=== PATIENT | female | born 1970 | race Caucasian/White ===

== ENCOUNTER → 2018-08-25 | Day surgery (SDC) | payer OTHER ==
--- NOTE | 2018-08-27 11:28 | PATH ---
Surgical Pathology Report Patient Name: KENTRELL HERNANDEZ [facility]. Rec. #: [id number] /Age/Gender: 1970 (Age: 48) / F Account: [id number] Location: [facility] Taken: 08/25/2018 Received: 08/25/2018 Reported: 08/27/2018 Physicians: Melissa Yepez M.D. Specimen(s) Received A: LEFT BREAST SPECIMEN WITH CALCIFICATIONS B: LEFT BREAST SPECIMEN WITHOUT CALCIFICATIONS Clinical History Nonpalpable lesion Mammographic findings: Microcalcification, suspicious Final Diagnosis A. BREAST, LEFT, WITH CALCIFICATIONS, STEREOTACTIC BIOPSY: BENIGN BREAST TISSUE SHOWING COLUMNAR CELL CHANGE / HYPERPLASIA WITH ASSOCIATED CALCIFICATIONS. B. BREAST, LEFT, WITHOUT CALCIFICATIONS, STEREOTACTIC BIOPSY: BENIGN BREAST TISSUE SHOWING COLUMNAR CELL CHANGE / HYPERPLASIA WITH ASSOCIATED CALCIFICATIONS. Electronically Signed Luz Tejada M.D. Gross Description A. Received in formalin labeled "left breast with calcifications," are 5 davies-yellow, cylindrical portions of fibroadipose tissue ranging from 0.4-2.2 cm in length and averaging 0.3 cm in diameter. The specimens are submitted in toto in one cassette. B. Received in formalin labeled "left breast without calcifications," are 7 davies-yellow, cylindrical portions of fibroadipose tissue ranging from 0.4-2.3 cm in length and averaging 0.3 cm in diameter. The specimen is submitted in toto in 2 cassettes. Time to formalin fixation: 5 minutes Total formalin fixation time: Approximately 6 hours. /08/25/201808/25/2018
== END | disposition home or self-care (01) ==
LOC: FMAMMOTONE 10:09
PROVIDERS: ATTEND Internal Medicine
PROC: 0HBU3ZX Excision of Left Breast, Percutaneous Approach, Diagnostic (ICD-10-PCS; principal; 2018-08-25)
DX: D24.2 Benign neoplasm of left breast (principal)
CPT/HCPCS: 19081; 87899; 88305-TC; A4648

== ENCOUNTER 2020-01-28 17:49 | Emergency (ER) | payer OTHER ==
[2020-01-28 18:05] VITALS: BP 119/80; PULSE 87; TEMP 98.5; BMI 22.8
== END 2020-01-28 21:30 | disposition home or self-care (01) ==
LOC: JER 17:49
DX: M79.661 Pain in right lower leg (principal)
CPT/HCPCS: 71046-TC-FY; 93971-TC; 99284-25

== ENCOUNTER 2021-12-23 04:23 | Day surgery (SDC) | payer OTHER ==
[2021-12-19 12:51] VITALS: BMI 22.1
[2021-12-23] MEDS ORDERED: MIDAZOLAM HCL 2 MG/2 ML SINGLE DOSE VIAL ONE (07:14)
[2021-12-23] MEDS ORDERED: PROPOFOL 20 ML ONE ×2 (07:14→11:29)
[2021-12-23] MEDS ORDERED: SUCCINYLCHOLINE CHLORIDE 200 MG/10 ML SYRINGE ONE (07:14)
[2021-12-23] MEDS ORDERED: ONDANSETRON 4 MG/2 ML VIAL IVPUSH PRN (07:19)
[2021-12-23] MEDS ORDERED: LACTATED RINGERS SOLUTION 1,000 ML IV SCH (07:30)
[2021-12-23] MEDS ORDERED: ACETAMINOPHEN 1000 MG/100 ML BAG IVPB ONE (07:33)
[2021-12-23] MEDS ORDERED: IBUPROFEN 800 MG/8 ML IJ IVPB SCH (07:45)
[2021-12-23] MEDS ORDERED: DEXTROSE 5%-0.45% SALINE 1,000 ML IV SCH (07:45)
[2021-12-23] MEDS ORDERED: KETOROLAC TROMETHAMINE 30 MG/1 ML VIAL ONE ×2 (07:54→09:27)
[2021-12-23] MEDS ORDERED: ONDANSETRON 4 MG/2 ML VIAL ONE ×3 (07:54→09:27)
[2021-12-23] MEDS ORDERED: DEXAMETHASONE SOD PHOSPHATE 4 MG/1 ML VIAL ONE ×2 (07:54→09:27)
[2021-12-23] MEDS ORDERED: ceFAZolin SODIUM 1 GM VIAL ONE ×3 (07:54→09:27)
[2021-12-23] MEDS ORDERED: ceFAZolin SODIUM 1 GM VIAL IVPB ONE (07:55)
[2021-12-23] MEDS ORDERED: ACETAMINOPHEN INJECTION 100 ML IVPB ONE (08:41)
[2021-12-23] MEDS ORDERED: HYDROmorphone HCl 2 MG/ML VIAL ONE (09:27)
[2021-12-23] MEDS ORDERED: TRANEXAMIC ACID 1000 MG/10 ML VIAL ONE (09:49)
[2021-12-23] MEDS ORDERED: IBUPROFEN 600 MG TABLET (FP) PO ONE ×2 (09:58→12:48)
[2021-12-23] MEDS ORDERED: GLYCOPYRROLATE 0.2 MG/1 ML VIAL ONE ×2 (10:02)
[2021-12-23] MEDS ORDERED: NEOSTIGMINE METHYLSULFATE 0.5 MG/ML - 10 ML MDV ONE (10:02)
[2021-12-23 12:48] VITALS: RESP 20; TEMP 97.6
[2021-12-23 12:54] VITALS: BP 122/74; PULSE 51
== END 2021-12-23 10:47 | disposition home or self-care (01) ==
LOC: JASU-SURG 04:23
PROVIDERS: ATTEND Urology
PROC: 0TC78ZZ Extirpation of Matter from Left Ureter, Via Natural or Artificial Opening Endoscopic (ICD-10-PCS; principal; 2021-12-23 07:30)
PROC: 0T778DZ Dilation of Left Ureter with Intraluminal Device, Via Natural or Artificial Opening Endoscopic (ICD-10-PCS; 2021-12-23 07:30)
DX: N20.1 Calculus of ureter (principal); N23 Unspecified renal colic
CPT/HCPCS: 76000-TC-FY; 94760; C1758; C2617